=== PATIENT | female | born 1935 | race Caucasian/White ===

== ENCOUNTER 2018-11-13 12:41 | Outpatient (RCR) | payer MEDICARE ==
[~2018-11-13] VITALS: Ht 152.4 cm; Wt 86.8 kg
[~2018-11-13 12:41] MED LIST: ALEVE PM PO; ASPIRIN E.C. 8181 MG PO; B COMPLEX #11 TA1 PO; CEFTIN 250250 MG/TAB PO; COZAAR100 MG PO; FERRO-TIME325 MG PO; FOSAMAX 70MG TA70 MG PO; MASON NATURAL1000 MG PO; MEGAKRILL PO; OSTEO-BI-FLEX 21 TAB; OSTEO-BI-FLEX 21 TAB PO; PACERONE100 MG PO; PRILOSEC 20MG20 MG PO; PRINZIDE 25 MG-1 TAB PO; THE MEDICINE S200 M2 PO; TYLENOL 325MG325 MG PO; [UNRECOGNIZED DRUG - OTHER] PO
[2018-11-13 15:16] VITALS: BP 169/95; PULSE 83; TEMP 98.9
[2018-11-13] MEDS ORDERED: FERROUSAL325 MG PO (15:32)
[2018-11-13 15:35] VITALS: BP 188/97; PULSE 83; TEMP 98.3
[2018-11-13] MEDS ORDERED: ASPIRIN 81M81 MG/TA2 PO (15:35)
[2018-11-13] MEDS ORDERED: MASON NATURAL2000 IU PO (15:36)
[2018-11-13] MEDS ORDERED: MULTI VITAMINS1 TAB PO (15:36)
[2018-11-13] MEDS ORDERED: VOLTAREN GEL 1%1 TU TP (15:37)
[2018-11-13] MEDS ORDERED: MASON NATURAL1200 MG PO (15:38)
[2018-11-13] MEDS ORDERED: PRILOSEC 20MG20 MG PO (15:40)
[2018-11-13 15:50] VITALS: BP 165/94; PULSE 78; TEMP 98.7
[2018-11-13 16:20] VITALS: BP 176/95; PULSE 80; TEMP 97.6
[2018-11-13 17:18] VITALS: BP 181/104; PULSE 75; TEMP 98.4
[2018-11-13 17:36] VITALS: BP 183/103; PULSE 79; TEMP 98.4
== END 2018-11-13 17:45 | disposition home or self-care (01) ==
LOC: EUO 12:41
DX: D64.9 Anemia, unspecified (principal); I12.9 Hypertensive chronic kidney disease with stage 1 through stage 4 chronic kidney disease, or unspecified chronic kidney disease; N18.3 Chronic kidney disease, stage 3 (moderate)
CPT/HCPCS: J7050; P9016

== ENCOUNTER 2021-01-06 17:01 | Inpatient (IN) | payer MEDICARE ==
[~2021-01-06] VITALS: Ht 154.9 cm; Wt 85.3 kg
[~2021-01-06 17:01] MED LIST changes: +ASPIRIN 81M81 MG/TA2 PO; +FERROUSAL325 MG PO; +MASON NATURAL1200 MG PO; +MASON NATURAL2000 IU PO; +MULTI VITAMINS1 TAB PO; +VOLTAREN GEL 1%1 TU TP
[2021-01-06 18:17] LABS: BASO # 0.1 (0.0-0.2); BASO % 0.8 % (0.0-2.0); GRAN # 8.4 (1.4-6.5); GRAN % 80.3 % (42.2-75.2); HEMOGLOBIN 12.3 g/dl (12.5-16.0); LYMPH % 9.8 % (20.0-51.0); MEAN CELL VOLUME 97 fl (80.0-100.0); MEAN CORPUSCULAR HEMOGLOBIN 31 pg (27.0-31.0); MEAN CORPUSCULAR HGB CONC 32 g/dl (33.0-37.0); MEAN PLATELET VOLUME 9.8 fl (7.4-10.4); MONO # 0.9 (0.1-0.6); MONO % 8.6 % (1.7-9.3); PLATELET COUNT 187 K/mm3 (130-400); RED BLOOD COUNT 4.01 M/mm3 (4.10-5.30); REDCELL DISTRIBUTION WIDTH-CV 15.4 % (11.5-14.5)
[2021-01-06 18:27] LABS: ALBUMIN 3.5 gm/dL (3.5-5.0); BILIRUBIN,TOTAL 0.4 mg/dL (0.0-1.0); CALCIUM 10.1 mg/dL (8.4-10.2); CREATININE, serum 2.36 (0.52-1.25); POTASSIUM 4.4 mmol/L (3.4-5.0); TOTAL PROTEIN 7.1 gm/dL (6.4-8.2)
--- NOTE | 2021-01-06 22:30 | NUR ---
Admitted to medical floor from ER with fluid overload,SOB. Pt very pleasant, cooperative, follows commands- oriented to person and place but not time. Does not know why she was admitted. Denies any pain or SOB, o2 sats 95% on 2L/nc. Florentino with clear yellow urine. Understands to call for nurse before getting up. Bed alarm on
[2021-01-06] MEDS ORDERED: NORVASC 5MG5 MG/TAB PO (22:32)
[2021-01-06] MEDS ORDERED: SYNTHROID0.05 MG/TA PO (22:33)
[2021-01-06] MEDS ORDERED: VITAMIN B11000 MCG/M IM (22:36)
[2021-01-06 23:29] LABS: PARTIAL THROMBOPLASTIN TIME 23.9 SECONDS (26.0-37.0)
--- NOTE | 2021-01-06 23:30 | NUR ---
isaac ORDAZ called with elevated d-dimer results -- orders for heparin drip,, started at this time ,heparin drip at 1500units/hr, 15 cc hr per pump- next hepxa at 0600
[2021-01-06 23:34] VITALS: BP 148/89; PULSE 70; TEMP 97.5
[2021-01-07] VITALS (8 sets, daily range): BP systolic 87–136; BP diastolic 50–117; PULSE 75–107; TEMP 97.3–98.3
--- NOTE | 2021-01-07 02:32 | NUR ---
Talked with Genie ORDAZ about med rec- pt does not know meds and the daughter in ER also was not sure-- Genie is aware and states to have days call Dr. Ortiz office/delbert to get accurate list. Daughter did tell Genie that she doesnt think her mom has been taking any of her meds in the past weeks
[2021-01-07 07:15] LABS: CALCIUM 10.1 mg/dL (8.4-10.2); CREATININE, serum 2.31 (0.52-1.25); POTASSIUM 4.2 mmol/L (3.4-5.0)
[2021-01-07 09:33] LABS: BASO # 0.1 (0.0-0.2); BASO % 1.1 % (0.0-2.0); EOS % 0.3 % (0-4.0); GRAN # 5.6 (1.4-6.5); HEMATOCRIT 37.4 % (37.0-47.0); HEMOGLOBIN 11.9 g/dl (12.5-16.0); LYMPH # 2.9 (1.2-3.4); MEAN CELL VOLUME 96 fl (80.0-100.0); MEAN CORPUSCULAR HEMOGLOBIN 31 pg (27.0-31.0); MEAN CORPUSCULAR HGB CONC 32 g/dl (33.0-37.0); MEAN PLATELET VOLUME 10.9 fl (7.4-10.4); MONO % 10.1 % (1.7-9.3); PLATELET COUNT 173 K/mm3 (130-400); REDCELL DISTRIBUTION WIDTH-CV 15.6 % (11.5-14.5)
--- NOTE | 2021-01-07 11:46 | NUR ---
youth worker met with patient and her daughter, Tayler [phone] to discuss discharge planning. Patient lives alone and has [facility] health and her daughter works therefore patient is agreeable that her level of care needs have increased and nursing home rehab is required. Physical therapy evaluated patient this date and recommends skilled rehab. Worker provided skilled facility options and gave a referral to [facility] as they are local and accepting referrals. Patient's primary care provider is Dr Ortiz. Will await nursing facility screens for skilled care placement. skilled care placement: Referrals to [facility].
--- NOTE | 2021-01-07 13:53 | NUR ---
[facility] Daughter and patient chose [facility]. Worker notified [email or web address] of patient's choice. Worker provided information on advance directives and worker assisted with patient's completion of a durable power of senior trial attorney for health care. Worker gave copies to daughter and placed a copy in patient's medical record.
--- NOTE | 2021-01-07 22:39 | NUR ---
PT ALERT AND ORIENTED TO PERSON AND PLACE. PT DID NOT KNOW SITUATION OR TIME. PT PLEASANT, ABLE TO FOLLOW VERBAL COMMANDS. PT IV SITE BRUISED, DRAINAGE. REDRESSED AND FLUSHED WITH 10MLS. NO SIGNS OF PHLEBITIS OR INFILTRATION NOTED AT THIS TIME. PT DENIES PAIN. PT DORSALIS PEDIS AND POSTERIOR TIBIAL PULSES 1+ BILATERALLY. PT HAS 1+ EDEMA IN LEGS BILATERALLY. PT CALL LIGHT WITHIN REACH. HEPARIN GTT RESTARTED AT 2052. NEXT HEP XA LAB 6HRS PER PROTOCOL. NO OTHER NEEDS AT THIS TIME.
--- NOTE | 2021-01-07 23:39 | NUR ---
THIS RN NOTIFIED OF LOW BP. RECHECKED MANUALLY AT THIS TIME. BP 112/86. PT NOT SYMPTOMATIC OF LOW BP AT THIS TIME. NO FURTHER INTERVENTIONS NEEDED. WILL CONTINUE TO MONITOR VS PER ORDERS.
[2021-01-08] VITALS (7 sets, daily range): BP systolic 91–125; BP diastolic 54–97; PULSE 71–87; TEMP 97.5–98.7
--- NOTE | 2021-01-08 02:36 | NUR ---
BACK CHARTING. BLADDER SCAN ATTEMPT AT 2300. ONLY 4ML REGISTERED BY BLADDER SCANNER. CHARGE NURSE PRESENT AT TIME OF SCAN TO VERIFY.
[2021-01-08 03:20] LABS: HEMOGLOBIN 11.4 g/dl (12.5-16.0); MEAN CELL VOLUME 97 fl (80.0-100.0); MEAN CORPUSCULAR HEMOGLOBIN 31 pg (27.0-31.0); MEAN CORPUSCULAR HGB CONC 32 g/dl (33.0-37.0); MEAN PLATELET VOLUME 10.3 fl (7.4-10.4); PLATELET COUNT 190 K/mm3 (130-400); RED BLOOD COUNT 3.66 M/mm3 (4.10-5.30); REDCELL DISTRIBUTION WIDTH-CV 15.6 % (11.5-14.5)
[2021-01-08 03:22] LABS: HEMATOCRIT 35.4 % (37.0-47.0)
[2021-01-08 03:29] LABS: CALCIUM 9.6 mg/dL (8.4-10.2); CREATININE, serum 2.4 (0.52-1.25); POTASSIUM 4.1 mmol/L (3.4-5.0)
[2021-01-08 03:57] LABS: TROPONIN-I 0.116 ng/mL (0.000-0.035)
--- NOTE | 2021-01-08 05:42 | NUR ---
BP RECHECKED AT THIS TIME, 125/88. THIS RN RECHECKED PT AFTER LOW BP NOTED FOR 0400 VS. TIME ALLOWED FOR PT TO RELAX BEFORE RECHECK.
[2021-01-08 12:58] LABS: TROPONIN-I 0.106 ng/mL (0.000-0.035)
--- NOTE | 2021-01-08 13:59 | NUR ---
Primary nurse was assisted with [phone] patient care by [employer] [facility] [employer] student Sherie Kumar and [facility] instructor Ana Giraldo MSN, RN
--- NOTE | 2021-01-08 16:58 | NUR ---
HEPARIN DRIP STOPPED AT THIS TIME PER ORDER FOR 2 HOURS.
[2021-01-08 19:35] LABS: PARTIAL THROMBOPLASTIN TIME 64.6 SECONDS (26.0-37.0)
[2021-01-08 21:10] LABS: URINE MICROALBUMIN 48.8 mg/dL (0.0-1.7)
--- NOTE | 2021-01-08 23:13 | NUR ---
PT ALERT AND ORIENTED TO PERSON AND PLACE. DISORIENTED TO TIME AND SITUATION. PT PLEASANT, ABLE TO FOLLOW VERBAL COMMANDS. PT COMPLAINS OF CHEST PAIN, DENIES DIZZINESS, SOA. PT STATES SHE HAS BEEN HURTING ALL DAY, BUT DID NOT TELL DAY SHIFT. PT SPO2 OBTAINED AT THIS TIME, STABLE ABOVE 92%. PT DENIES FEELING DISTRESS. WILL CONTINUE TO MONITOR. PT TACHYPIC, BUT DENIES SOA. PT HAS SHALLOW BREATH, AUDIBLE WHEEZE, CLEAR UPON AUSCULTATION. PT CALL LIGHT WITHIN REACH. IV FLUSHED. NO OTHER NEEDS AT THIS TIME.
[2021-01-09 00:53] VITALS: BP 119/89; PULSE 78; TEMP 98.3
--- NOTE | 2021-01-09 00:54 | NUR ---
PT SATURATION REMAINED AT 90-91% ON RA. PT PLACED ON 1L O2 AT THIS TIME, AUDIBLE GRUNTING WITH RESPIRATIONS. SPO2 INCREASE TO 96%. RESPIRATIONS ELEVATED AT 28/MIN. PT CURRENTLY SLEEPING, NO FURTHER DISTRESS NOTED AT THIS TIME.
[2021-01-09 04:20] VITALS: BP 96/61; PULSE 79; TEMP 97.7
[2021-01-09 04:23] LABS: CALCIUM 9.7 mg/dL (8.4-10.2); CREATININE, serum 2.38 (0.52-1.25)
--- NOTE | 2021-01-09 05:16 | NUR ---
PT CONTINUING ON PLAN OF CARE. PT BP SOFT, MAP ABOVE 65. WILL PASS ON TO DAY SHIFT. PT NEEDED 1L O2 WHILE SLEEPING TO MAINTAIN SPO2 >92%. PT IV PULLED OUT, RESTARTED IN LEFT FOREARM. PT DENIED PAIN AFTER INITIAL COMPLAINT OF CHEST PAIN. PT GILMAN OUTPUT PROGRESSING. PT FREE FROM INJURY THIS SHIFT.
[2021-01-09 07:47] VITALS: BP 105/63; PULSE 73; TEMP 97.8
--- NOTE | 2021-01-09 10:00 | NUR ---
received report from noc shift to day shift nurse.
[2021-01-09 11:46] VITALS: BP 108/64; PULSE 80; TEMP 97.9
--- NOTE | 2021-01-09 12:54 | NUR ---
The hospitalist notified SW that the patient is to tentatively be here through the weekend. ZOHAIB notified and faxed updates to Farzana at [facility]. *Discharge plan: [facility]*
--- NOTE | 2021-01-09 14:00 | NUR ---
Primary nurse was assisted with [phone] patient care by [employer] [employer] AD[employer] student Sherie Kumar and [facility] instructor Ana Giraldo MSN, RN
[2021-01-09 15:34] VITALS: BP 115/81; PULSE 79; TEMP 98.7
--- NOTE | 2021-01-09 19:57 | NUR ---
Patient is resting in bed, alert and oriented x 3. VSS, no nausea, pain or vomiting. There is some edema in both ankles. Tele in place. Assessment complent and meds provided. No further needs at this time. Call light within reach.
--- NOTE | 2021-01-09 20:00 | NUR ---
Patient is resting in bed, alert and oriented x 3, reports no pain, nausea or vomiting. VSS. Tele in place. No oxygen in use. Some edema in both ankles. Assessment comoplete, meds provided. No further needs at this time. Call light within reach.
[2021-01-09 20:31] VITALS: BP 119/81; PULSE 93; TEMP 98.3
[2021-01-10 00:24] VITALS: BP 116/63; PULSE 94; TEMP 98.4
[2021-01-10 04:31] VITALS: BP 111/77; PULSE 76; TEMP 97.4
--- NOTE | 2021-01-10 05:41 | NUR ---
Patient has had a calm night. VSS. She is alert but not fully oriented. Continue monitoring. Shift report will be given to day nurse.
[2021-01-10 07:06] LABS: HEMOGLOBIN 11.5 g/dl (12.5-16.0); MEAN CELL VOLUME 95 fl (80.0-100.0); MEAN CORPUSCULAR HEMOGLOBIN 31 pg (27.0-31.0); MEAN CORPUSCULAR HGB CONC 33 g/dl (33.0-37.0); MEAN PLATELET VOLUME 10.5 fl (7.4-10.4); PLATELET COUNT 242 K/mm3 (130-400); RED BLOOD COUNT 3.73 M/mm3 (4.10-5.30); REDCELL DISTRIBUTION WIDTH-CV 15.5 % (11.5-14.5)
[2021-01-10 07:20] LABS: HEMATOCRIT 35.3 % (37.0-47.0)
[2021-01-10 07:29] VITALS: BP 138/85; PULSE 77; TEMP 98.5
--- NOTE | 2021-01-10 07:40 | NUR ---
Shift assessment complete. Pt resting in bed A&Ox4. Heart RRR. Lungs diminished to auscultation. Breathing labored but O2 sats stable on 1 lpm NC. 1+ edema to BLE. Florentino draining clear yellow urine. Denies pain or other concerns at this time. Continuing to monitor.
[2021-01-10 11:55] VITALS: BP 122/71; PULSE 81; TEMP 97.5
--- NOTE | 2021-01-10 15:53 | NUR ---
Went to room to remove pt's Florentino per orders. Pt requested to wait at least an hour so she can rest. Will check back around 1700.
[2021-01-10 17:12] VITALS: BP 138/76; PULSE 86; TEMP 98.5
--- NOTE | 2021-01-10 17:35 | NUR ---
Florentino removed at this time per orders.
[2021-01-10 21:56] VITALS: BP 139/109; PULSE 83; TEMP 97.6
[2021-01-11] VITALS (7 sets, daily range): BP systolic 93–150; BP diastolic 52–99; PULSE 77–105; TEMP 97.7–98.7
--- NOTE | 2021-01-11 07:13 | NUR ---
Patient has been disoriented at night. She removed TELE 3 times, the gown and the bracelet. Right now she is ok. Her cough increased along the night. Shift report given to dayshift.
[2021-01-11 07:36] LABS: BASO # 0.1 (0.0-0.2); BASO % 0.6 % (0.0-2.0); EOS # 0.2 (0.0-0.7); EOS % 1.7 % (0-4.0); GRAN % 70.7 % (42.2-75.2); HEMATOCRIT 34.5 % (37.0-47.0); HEMOGLOBIN 11.2 g/dl (12.5-16.0); LYMPH # 2.2 (1.2-3.4); LYMPH % 19.5 % (20.0-51.0); MEAN CELL VOLUME 95 fl (80.0-100.0); MEAN CORPUSCULAR HEMOGLOBIN 31 pg (27.0-31.0); MEAN CORPUSCULAR HGB CONC 33 g/dl (33.0-37.0); MONO # 0.8 (0.1-0.6); MONO % 7.1 % (1.7-9.3); PLATELET COUNT 262 K/mm3 (130-400); RED BLOOD COUNT 3.65 M/mm3 (4.10-5.30); REDCELL DISTRIBUTION WIDTH-CV 15.7 % (11.5-14.5)
[2021-01-11 07:45] LABS: CALCIUM 9.7 mg/dL (8.4-10.2); CREATININE, serum 1.94 (0.52-1.25); POTASSIUM 3.9 mmol/L (3.4-5.0)
--- NOTE | 2021-01-11 10:23 | NUR ---
SCHEDULED MEDICATIONS GIVEN. SHIFT ASSESSMENT PREFORMED. PATIENT A&O. PATIENT DENIES ANY PAIN, DISCOMFORT, SOA, OR FURTHER NEEDS AT THIS TIME. CALL LIGHT IN REACH. FALL PRECAUTIONS IN PLACE. VSS.
--- NOTE | 2021-01-11 17:40 | NUR ---
PATIENT HAS HAD AN OK DAY. VSS. PATIENT CONTINUES TO HAVE NOSEBLEEDS OFF AND ON. PATIENT DENIES ANY PAIN DISCOMFORT, SOA, OR FURTHER NEEDS AT THIS TIME. CALL LIGHTIN REACH. FALL PRECAUTIONS IN PLACE.
--- NOTE | 2021-01-11 20:43 | NUR ---
Patient is lying in bed, alert and oriented, reports feeling really tired and weak. O2 levels over 93%, Heart rate over 100. BP WNL. Fast respirations. Hospitalist came to see her. 20 mg lasix privided. Now resting. Continue monitoring. Call light within reach.
--- NOTE | 2021-01-11 20:46 | NUR ---
Purewick placed and suction in low 40.
--- NOTE | 2021-01-12 00:34 | NUR ---
Patient is sleeping. She is coughing from time to time. Her breathing is fast 27/min. She seems uncomfortable since with every breath is moaning. Continue monitoring.
[2021-01-12 03:26] VITALS: BP 147/88; PULSE 97; TEMP 98.7
--- NOTE | 2021-01-12 06:19 | NUR ---
Patient has been resting most of the night. She seems more peaceful now sleeping. VSS. She just have 170 urine output. Shift report will be given to day nurse.
[2021-01-12 07:20] VITALS: BP 108/58; PULSE 92; TEMP 98.1
[2021-01-12] MEDS ORDERED: IPRATROPIUM BROM3 M1 IH ×2 (09:29)
[2021-01-12] MEDS ORDERED: ELIQUIS 5MG PO (09:30)
--- NOTE | 2021-01-12 09:43 | NUR ---
Patient resting in bed, daughter and hospitalist in the room upon entering. Patient SOB w/o oxygen on. Daughter stated this is normal for the patient. O2 saturations were WNL. All scheduled medications administered w/o difficulty. Patient should discharge to [facility] at 1300 today, pending negative covid test.
--- NOTE | 2021-01-12 09:55 | NUR ---
Diana faxed over updates to [facility]
--- NOTE | 2021-01-12 10:48 | NUR ---
Diana faxed over d/c orders and covid to [facility] 10:45 am
--- NOTE | 2021-01-12 13:10 | NUR ---
Patient being picked up by Yvon. IV discontinued. Patient is SOB, patient and daughter state this is normal for the patient. Placed on 2L O2 upon discharge.
== END 2021-01-12 13:20 | DRG 175 ==
LOC: COL.ER 17:01 → MEDICAL 20:11
PROVIDERS: Internal Medicine; Personal Emergency Response Attendant; Physician Assistant; Student in an Organized Health Care Education/Training Program; ADMIT Student in an Organized Health Care Education/Training Program
DX: I26.99 Other pulmonary embolism without acute cor pulmonale (principal); I21.A1 Myocardial infarction type 2; J96.01 Acute respiratory failure with hypoxia; I82.452 Acute embolism and thrombosis of left peroneal vein; N18.4 Chronic kidney disease, stage 4 (severe); I13.0 Hypertensive heart and chronic kidney disease with heart failure and stage 1 through stage 4 chronic kidney disease, or unspecified chronic kidney disease; N17.9 Acute kidney failure, unspecified; E03.9 Hypothyroidism, unspecified; D63.1 Anemia in chronic kidney disease; I48.0 Paroxysmal atrial fibrillation; I48.91 Unspecified atrial fibrillation; Z66 Do not resuscitate; I50.811 Acute right heart failure; Z20.822 Contact with and (suspected) exposure to COVID-19; E87.70 Fluid overload, unspecified; Z79.82 Long term (current) use of aspirin
CPT/HCPCS: 99223-AI; 99232-AI; 99233-AI; 99239; A9284; A9540; A9567; J1644; J1940; J7030; J7040